=== PATIENT | female | born 1985 | race Caucasian/White ===

== ENCOUNTER → 2016-12-22 | Outpatient (CLI) | payer BC ==
--- NOTE | ~2016-12-22 | EE ---
Unit #: [id number] #: [id number] Patient: SARAH NYE [id number] [address] [address] [id number] O MR#: [id number] NAME: SARAH NYE : 1985 SEX: F STUDY DATE/TIME: 12/22/2016 UNIT: CEEG ROOM: STUDY DESCRIPTION: EEG Attending Physician: Ambar Crespo M.D. Referring Physician: Ambar Crespo M.D. Primary Care Physician: Jerry Blake NEURODIAGNOSTICS REPORT EXAM EEG. TECH Kendy. REASON FOR STUDY Seizures. TECHNICAL INFORMATION This is a routine EEG performed using the standard international 10-20 system of electrode placement. Photic stimulation was performed. Hyperventilation was also performed. REPORT Throughout the entire study, the best background rhythm seen was approximately 10 Hz to 11 Hz. This rhythm is seen in both posterior head regions symmetrically and does attenuate to eye opening and closure. Hyperventilation was performed, which failed to reproduce any abnormal buildup. Photic stimulation was also performed, which did not appear to elicit any epileptiform abnormalities. Throughout the entire study there were no electrographic seizures recorded, nor were there any independent epileptiform abnormalities seen. No sleep was recorded. INTERPRETATION This is a normal awake EEG. A normal EEG does not rule out the possibility of a seizure disorder. Clinical correlation is advised. Dictated by... King Sanderson II., M.D. GWS/bobby TD: 01/01/2017 12:27 JOB #: [id number] Unit #: [id number] #: [id number] Patient: SARAH NYE NEURODIAGNOSTICS REPORT Page 1 of 1 X NEURODIAGNOSTICS REPORT
== END | disposition home or self-care (01) ==
LOC: CEEG 07:56
DX: G40.209 Localization-related (focal) (partial) symptomatic epilepsy and epileptic syndromes with complex partial seizures, not intractable, without status epilepticus (principal)
CPT/HCPCS: 95816